=== PATIENT | male | born 1995 | race Two or more races ===

== ENCOUNTER 2023-11-01 12:28 | Emergency (ER) | payer SELFPAY ==
[2023-11-01 12:31] VITALS: BP 126/80; PULSE 107; RESP 16; TEMP 36.6; O2SAT 98; BMI 31.8
[2023-11-01] MEDS: ONDANSETRON 4MG ODT 4 MG SL (13:20)
--- NOTE | 2023-11-01 13:20 | PC.NURSE ---
dr myers at bedside
[2023-11-01] MEDS: CIPRO 0.3%-DEX 0.1% OTIC SUSP 7.5ML 1 ML OT (13:39)
--- NOTE | 2023-11-01 13:58 | ED_ITS ---
Discharge Plan Disposition Patient Disposition: Home, Self-Care Condition: Good Prescriptions Prescriptions: New ondansetron HCl 4 mg tablet 4 mg PO Q8H PRN (Reason: nausea and vomiting) 4 Days Qty: 12 0RF Referrals Follow up/Referrals: Jazlyn Aparicio APRN [Primary Care Provider] - See instructions Activity Restrictions/Add. Instructions Additional Instructions/Restrictions: Please rock picker your prescription for Zofran to take as needed for nausea and vomiting. Eat a bland diet until your symptoms have resolved. Hydrate. Return to the emergency department for new or worsening symptoms. Follow closely with primary care Clinical Impressions Clinical Impression: Gastroenteritis Stand Alone Forms Stand Alone Forms: Work/School Release Instructions Patient Instructions: DI for Diarrhea and Traveler's Diarrhea -- Adult, DI for Nausea -- Adult Print Language Print Language: Kinyarwanda Discharge ED Provider: Irais Bernal General Adult HPI General Chief complaint: Nausea/Vomiting/Diarrhea Stated complaint: vomiting black, blood from ears, dizzy, weak, diar Time Seen by Provider: 11/01/23 13:17 Mode of Arrival: Ambulatory Source of Information: Patient Limitations: Language Barrier Description of Symptoms (Recalled from ER Triage Doc. by RN): Reports eating shr imp and frog legs at a buffet yesterday and since then he has had nausea and diarrhea. States he feels that the food was bad. History of Present Illness HPI narrative: This patient is a 27-year-old Kinyarwanda-speaking male presenting to the emergency department for evaluation with concern for nausea, vomiting, and diarrhea. He states that he ate frog-leg's and shrimp at a buffet yesterday and he believes the food was bad. He is been vomiting and having diarrhea ever since. Emesis is nonbloody and nonbilious and diarrhea is nonbloody. No other concerns noted at this time. He denies any history of medical problems, prior abdominal surgeries, or any history of significant alcohol or other substance use. History is obtained with the help of a wharf tender head. Related Data Previous Rx's ?Medication ?Instructions ?Recorded ondansetron HCl 4 mg tablet 4 mg PO Q8H PRN nausea and 11/01/23 vomiting 4 days #12 tabs Allergies Allergy/AdvReac Type Severity Reaction Status Date / Time No Known Allergies Allergy Verified 11/01/23 12:43 [facility] Disclaimer: The information contained in this section may have been updated after the patient was seen, as this information can be updated by other users. Social History Smoking Status: Never smoker alcohol intake: never current occupational status: employed Travel in the last 8 weeks: None ROS Obtained: Yes All systems reviewed & no additional complaints except as documented Physical Exam General General appearance: alert and in no apparent distress Head Head exam: atraumatic and normocephalic Eye Eye exam: Present normal appearance, PERRL and EOMI ENT ENT exam: Present normal exam, normal oropharynx, mucous membranes moist and normal external ear exam Neck Neck exam: Present normal inspection, full ROM and trachea midline; Absent te nderness Chest Chest inspection: Present normal inspection and symmetric chest wall rise; Absent tenderness Respiratory Respiratory exam: Present normal lung sounds bilaterally; Absent respiratory distress, wheezes, stridor or accessory muscle use Cardiovascular Cardiovascular exam: Present regular rate and normal rhythm Abdominal Exam Abdominal exam: Present soft; Absent distention, tenderness or guarding Extremities Exam Extremities exam: Present normal inspection, full ROM and normal capillary refill; Absent tenderness or edema Back Exam Back exam: Present normal inspection and full ROM; Absent tenderness Neurological Exam Neurological exam: Present alert, oriented X3, CN II-XII intact and normal gait; Absent motor sensory deficit Psychiatric Psychiatric exam: Present normal affect and normal mood Skin Skin exam: Present warm and dry Medical Decision Making Medical Records Medical records reviewed: Yes I reviewed the patient's medical records. Federico Inquiry Pt receiving controlled substance: No Vital Signs: 11/01/23 12:31 11/01/23 14:25 Temperature 97.8 F 98.0 F Temperature Source Oral Pulse Rate 86 Pulse Rate [Radial] 107 H Respiratory Rate 16 20 Blood Pressure 126/86 Blood Pressure [Left Arm] 126/80 Blood Pressure Mean [Left Arm] 95 Blood Pressure Source [Left Arm] Automatic Cuff Blood Pressure Position [Left Arm] Sitting 02 Sat by Pulse Oximetry 98 Oxygen Delivery Method Room Air Room Air Lab Data Lab results reviewed: Yes I reviewed the patient's lab results. Orders (Tests/Meds): ED MEDICATIONS Discontinued Medications Generic Name Dose Route Start Last Admin Trade Name Freq PRN Reason Stop Dose Admin Ciprofloxacin/Dexamethasone 1 ml 11/01/23 13:26 11/01/23 13:39 Cipro 0.3%-Dex 0.1% Otic Susp 7.5ml OT 11/01/23 13:27 1 ml ONCE ONE Administration Ondansetron HCl 4 mg 11/01/23 13:18 11/01/23 13:20 Ondansetron 4mg Odt SL 11/01/23 13:19 4 mg ONCE ONE Administration Medical Decision Narrative: In summary, this patient is a 27-year-old male presenting to the Emergency Department for evaluation of nausea, vomiting, and diarrhea after eating at a buffet yesterday. Differential diagnoses considered include but are not limited to viral gastroenteritis, bacterial gastroenteritis, colitis, dehydration, pancreatitis. Ruling out the most morbid conditions drove assessment. On exam, the patient is very well-appearing with nonfocal abdominal exam and no complaints of focal abdominal pain. Vitals are reassuring on cardiac telemetry. I feel he likely has infectious gastroenteritis at this time given his nonbloody nonbilious nausea, vomiting, and diarrhea in the absence of prior medical history or abdominal surgeries. He was given oral Zofran. He then also complained to me that he had some irritation of his right ear with bleeding from his ear after forceful vomiting. Findings concerning for potential otitis externa with perforated TM. He was given Ciprodex drops. After taking Zofran, patient was able to tolerate oral intake. Abdominal exam remains benign. Given this, feel that he is appropriate for discharge home with prescription for Zofran and instructions for supportive management. Strict return precautions were given and the patient was discharged after all questions were answered. Critical Care Critical Care Time Critical Care Time: No
[2023-11-01 14:25] VITALS: BP 126/86; PULSE 86; RESP 20; TEMP 36.7; O2SAT 96
== END 2023-11-01 14:26 | disposition home or self-care (01) ==
PROVIDERS: Emergency Provider Emergency Medicine; PCP Nurse Practitioner Family
DX: K52.9 Noninfective gastroenteritis and colitis, unspecified (principal); R11.2 Nausea with vomiting, unspecified
CPT/HCPCS: 99283; Q0162